=== PATIENT | female | born 1990 | race Caucasian/White ===

== ENCOUNTER 2019-12-17 01:07 | Emergency (ER) | payer OTHER ==
[2019-12-18] MEDS ORDERED: GI COCKTAIL 50ML BTL(HYOSCYAMINE/MAALOX/LIDOCAINE VISCOUS)(1:3:1) As Ordered ONE (00:51)
[2019-12-18] MEDS ORDERED: GI COCKTAIL 50ML BTL(HYOSCYAMINE/MAALOX/LIDOCAINE VISCOUS)(1:3:1) ONE (00:51)
[2020-01-16] MEDS ORDERED: PANT40TA29 (11:30)
--- NOTE | 2020-01-25 08:54 | ECGEPIP ---
SINUS RHYTHM NORMAL ECG SEE SCANNED DOWNTIME REPORT MTDD
[2020-03-02 21:33] LABS: ALBUMIN 3.8 GM/DL (3.2-5.2); ALT/SGPT 42 U/L (12-78); BILIRUBIN,DIRECT 0.2 MG/DL (0.0-0.2); BILIRUBIN,TOTAL 0.4 MG/DL (0.2-1.0); BLOOD UREA NITROGEN 9 MG/DL (7-18); CALCIUM LEVEL 9.2 MG/DL (8.5-10.1); CARBON DIOXIDE LEVEL 29 MEQ/L (21-32); CHLORIDE LEVEL 107 MEQ/L (98-107); CREATININE FOR GFR 0.77 MG/DL (0.55-1.30); GLOMERULAR FILTRATION RATE > 60.0 (>60); GLUCOSE, FASTING 116 MG/DL (70-100); LIPASE 65 U/L (73-393); SODIUM LEVEL 141 MEQ/L (136-145); TOTAL PROTEIN 7.1 GM/DL (6.4-8.2)
[2020-03-02 21:34] LABS: HCG, SERUM QUALITATIVE NEGATIVE (NEGATIVE)
== END 2019-12-18 02:15 | disposition left against medical advice (07) ==
LOC: M ED 01:07
DX: R10.13 Epigastric pain (principal); K21.9 Gastro-esophageal reflux disease without esophagitis

== ENCOUNTER 2019-12-21 17:05 | Emergency (ER) | payer OTHER ==
[2020-01-16] MEDS ORDERED: PANT40TA29 (11:30)
[2020-02-05 01:02] LABS: BASO % 0.3 % (0.0-1.0); EOS # 0.1 10^3/uL (0.0-0.5); EOS % 1.1 % (0.0-3.0); HEMATOCRIT 37.4 % (36.0-47.0); HEMOGLOBIN 12.1 g/dl (12.0-15.5); LYMPH # 3.7 10^3/uL (1.5-5.0); LYMPH % 28.8 % (24.0-44.0); MEAN CORPUSCULAR HEMOGLOBIN 27.4 pg (27.0-33.0); MEAN CORPUSCULAR HGB CONC 32.4 g/dl (32.0-36.5); MEAN CORPUSCULAR VOLUME 84.6 fl (80.0-96.0); MONO # 0.7 10^3/uL (0.0-0.8); MONO % 5.2 % (0.0-5.0); NEUTROPHILS # 8.2 10^3/uL (1.5-8.5); NEUTROPHILS % 64.1 % (36.0-66.0); PLATELET COUNT, AUTOMATED 331 10^3/uL (150-450); RED BLOOD COUNT 4.42 10^6/uL (4.00-5.40); WHITE BLOOD COUNT 12.8 10^3/uL (4.0-10.0)
[2020-03-15 11:27] LABS: HCG, SERUM QUALITATIVE NEGATIVE (NEGATIVE)
[2020-03-15 11:28] LABS: ALBUMIN 3.5 GM/DL (3.2-5.2); ALT/SGPT 30 U/L (12-78); BILIRUBIN,TOTAL 0.3 MG/DL (0.2-1.0); BLOOD UREA NITROGEN 5 MG/DL (7-18); CALCIUM LEVEL 8.9 MG/DL (8.5-10.1); CARBON DIOXIDE LEVEL 27 MEQ/L (21-32); CHLORIDE LEVEL 109 MEQ/L (98-107); CREATININE FOR GFR 0.66 MG/DL (0.55-1.30); GLOMERULAR FILTRATION RATE > 60.0 (>60); GLUCOSE, FASTING 97 MG/DL (70-100); LIPASE 75 U/L (73-393); POTASSIUM SERUM 3.9 MEQ/L (3.5-5.1); SODIUM LEVEL 140 MEQ/L (136-145); TOTAL PROTEIN 6.8 GM/DL (6.4-8.2)
== END 2019-12-21 19:28 | disposition home or self-care (01) ==
LOC: M ED 17:05
DX: K80.20 Calculus of gallbladder without cholecystitis without obstruction (principal); F17.200 Nicotine dependence, unspecified, uncomplicated; Z79.52 Long term (current) use of systemic steroids

== ENCOUNTER → 2020-01-20 | Outpatient (CLI) | payer OTHER ==
[~2020-01-20] MED LIST: PANT40TA29
== END ==
LOC: M LABSMTC 09:25
PROVIDERS: ATTEND Anesthesiology
DX: Z01.812 Encounter for preprocedural laboratory examination (principal); Z20.828 Contact with and (suspected) exposure to other viral communicable diseases
CPT/HCPCS: C9803; U0003

== ENCOUNTER 2020-01-25 08:06 | Day surgery (SDC) | payer OTHER ==
[~2020-01-25] VITALS: Ht 157.5 cm; Wt 88.9 kg
[~2020-01-25 08:06] MED LIST changes: +AMPICILLIN SOD/SULBACTAM SOD 3 GM in D5W MINI-BAG PLUS 100 ML IV ONE; +BUPIVACAINE HCL 0.25% 30ML VIAL As Ordered ONE; +LIDOCAINE 1% MDV 20ML VIAL SQ PRN; +LIDOCAINE 1% SDV 30ML VIAL As Ordered ONE; +LR 1,000 ML IV ONE
[2020-01-25] MEDS ORDERED: ONDANSETRON 4MG/2ML VIAL As Ordered ONE (08:23)
[2020-01-25] MEDS ORDERED: LIDOCAINE 2% 100MG/5ML SDV (FOR ANES.) As Ordered ONE (08:23)
[2020-01-25] MEDS ORDERED: ACETAMINOPHEN 1000MG 100ML IV BTL (OFIRMEV) (J0131 PER 10MG) As Ordered ONE (08:23)
[2020-01-25] MEDS ORDERED: dexameTHASONE 4 MG/ML 1ML VIAL (J1100 PER 1MG) As Ordered ONE (08:23)
[2020-01-25] MEDS ORDERED: KETOROLAC 60MG 2ML VIAL As Ordered ONE (08:23)
[2020-01-25] MEDS ORDERED: propofoL 200 MG/20 ML VIAL As Ordered ONE (08:23)
[2020-01-25] MEDS ORDERED: ROCURONIUM BROMIDE 50 MG/5 ML VIAL As Ordered ONE (08:23)
[2020-01-25] MEDS ORDERED: SUGAMMADEX SODIUM 500 MG/5 ML VIAL (BRIDION) As Ordered ONE (08:23)
[2020-01-25] MEDS ORDERED: MIDAZOLAM INJ 2MG/2ML VIAL (J2250 PER 1MG) As Ordered ONE (08:24)
[2020-01-25] MEDS ORDERED: fentaNYL 100 MCG/2 ML INJECTION (J3010) As Ordered ONE ×2 (08:24→10:43)
[2020-01-25] MEDS ORDERED: UNASYN 3 GM VIAL As Ordered ONE (09:12)
--- NOTE | 2020-01-25 11:20 | ROOPDOC ---
[facility] Report Of Operation Report of Operation DATE OF PROCEDURE: 01/25/20 PREPROCEDURE DIAGNOSES: Cholelithiasis, prior cholecystitis, biliary colic. POSTPROCEDURE DIAGNOSES: same. PROCEDURE: Robotic Assisted laparoscopic cholecystectomy with ICG use for biliary tract identificatiion. SURGEON: Al Sanches MD SCOOTER MECHANIC: ARLEEN Andrea Ms assisted me with placement of ports, management of robotic instruments, arms in the field while I was at the Surgeon's console, extraction of the gallbladder and closure of port sites ANESTHESIA: General Anesthesia. ESTIMATED BLOOD LOSS: Approximately 10 mL. COMPLICATIONS: none. REMARKS: Patient is a 29 F who has been having intermittent epigastric and RUQ pain following food intake and found to have stones in her gb with associated inflammation consistent with cholecystitis. PROCEDURE NOTE: distended but thin walled gb, multiple large stones in the gb, one at the gb neck. DESCRIPTION OF PROCEDURE: . Patient was given a dose Unasyn 3 g IV preoperatively for prophylaxis, 2.5 mg of ICG was given in the preoperative area. She was brought to the operating room, laid supine on the table, compression boots placed for DVT prophylaxis. General endotracheal anesthesia started. His abdomen then prepped and draped in usual sterile fashion. Surgical timeout was performed prior to confirm right procedure, right patient identification and other necessary information prior to starting surgery. Entry into the abdomen done through an incision aslightly to the left of the umbilical cleft. A Veress needle was inserted with a controlled fashion. CO2 insufflation started to pressure 15 mmHg. Using the same incision an 8 mm robotic trochar was placed under direct vision laparoscope. The area underneath the insertion site was inspected and no injury found. She was then placed in reverse Trendelenburg. Her right side was tilted up to further expose the gallbladder. Under direct vision 3 more 8 mm trochars were placed along a row at level to the camera port site at the anterior axillary line, right midclavicular line and left mid clavicular line. A transversus abdominis plane block was then performed bilaterally using the lidocaine/marcaine mixture under laparoscopic guidance. The da Medhat robot tower was then maneuvered in place and the trochars docked to the robot. I used a prograsp, forced bipolar, and hook cautery for the procedure with a 30 robotic camera. I unscrubbed and assumed control of the camera and instruments at the surgeon's console. My assistant director of financial aid remained on the field to manage instrument exchange and extraction of the gb. Operative findings: Her liver is noted to be smooth in contour. The size of the liver is midly enlarged. Her gallbladder is moderately distened with large stones floating and at the neck of the gallbladder. GB is not thickened of inflamed. The fundus of the gallbladder was grasped and the gallbladder is elevated superiorly exposing the neck of the gallbladder. The peritoneum overlying the area is opened up and dissected free both anteriorly and posteriorly to help with retraction of the gallbladder. The hepatocystic triangle was approached and dissected using hook cautery and firely visualization of the cystic duct. There was good illumination of the course of the cystic duct. The cystic duct was identified coming off from the neck of the gallbladder. This was circumferentially dissected. The cystic artery was identified in its usual position medially behind a mildly enlarged lymph node of Calot. This was similarly circumferentially dissected off surrounding adipose tissue. We continued posterior dissection proximally at the neck of gallbladder to dissect the posterior wall of the gallbladder off the liver plate until a critical view of safety was achieved whereby only the previously identified duct and artery coursing through the neck the gallbladder(photodocumentation done.) At this point the the cystic artery was most accessible and this was clipped 2 times and divided in between the hemlock clips. After again checking her anatomy and verifying with firely the course of thecystic duct and common bile duct, this was also clipped and divided with 2 clips remaining at the cystic duct stump. The rest of the gallbladder was then dissected free of the gall bladder bed using Bovie cautery. The gallbladder was then placed in an Endo Catch bag and retrieved outside through the right axillary port site with partial enlargement of the port site by my assistant director of financial aid to accomodate the gallbladder. The clips and liver bed was inspected for bleeding and bile leakage and none found. I closed the extraction site with a 2-0 vloc stitch. The abdomen was deflated, The trochars undocked, the robot removed from the field. Rest of the skin incisions closed with 4-0 Monocryl in subcuticular fashion. Dermabond placed to cover the incisions.. Patient was awakened, extubated and brought to recovery room stable. AL SANCHES MD Jan 25, 2020 11:20
[2020-01-25] MEDS ORDERED: METOCLOPRAMIDE INJ 10MG/2ML VIAL (J2765 PER 1) IV PRN (11:45)
[2020-01-25] MEDS ORDERED: LR 1,000 ML IV SCH (11:45)
[2020-01-25] MEDS ORDERED: ONDANSETRON 4MG/2ML VIAL IV PRN ×2 (11:45)
[2020-01-25] MEDS ORDERED: PERCOCET 5MG/325MG TAB PO PRN (11:45)
[2020-01-25] MEDS ORDERED: HYDROMORPHONE HCL 0.5 MG/ 0.5 ML SYRINGE (J1170 PER 1) IV PRN (11:45)
[2020-01-25] MEDS ORDERED: KETOROLAC 30 MG/ML 1ML VIAL IV PRN (11:45)
[2020-01-25] MEDS: fentaNYL 100 MCG/2 ML INJECTION (J3010) IV PRN ×2 (11:53→12:19)
[2020-01-25] MEDS: oxyCODONE 5MG TAB PO PRN ×2 (12:19→13:25)
[2020-01-25] MEDS ORDERED: oxyCODONE 5MG TAB As Ordered ONE (13:23)
[2020-01-25 13:40] VITALS: BP 110/63
== END 2020-01-25 13:45 | disposition home or self-care (01) ==
LOC: M SDC 08:06
PROVIDERS: ATTEND Surgery
DX: K80.10 Calculus of gallbladder with chronic cholecystitis without obstruction (principal); F17.210 Nicotine dependence, cigarettes, uncomplicated; E66.01 Morbid (severe) obesity due to excess calories; Z68.34 Body mass index [BMI] 34.0-34.9, adult
CPT/HCPCS: 47562; 81025; 88304; J0131; J1100; J1885; J2250; J2405; J2765; J3010; S2900

== ENCOUNTER → 2020-05-01 | Outpatient (REF) | payer OTHER ==
[~2020-05-01] MED LIST changes: -AMPICILLIN SOD/SULBACTAM SOD 3 GM in D5W MINI-BAG PLUS 100 ML IV ONE; -BUPIVACAINE HCL 0.25% 30ML VIAL As Ordered ONE; -LIDOCAINE 1% MDV 20ML VIAL SQ PRN; -LIDOCAINE 1% SDV 30ML VIAL As Ordered ONE; -LR 1,000 ML IV ONE
[2020-05-01 12:51] LABS: HEMATOCRIT 41.7 % (36.0-47.0); HEMOGLOBIN 13.2 g/dl (12.0-15.5); MEAN CORPUSCULAR HEMOGLOBIN 27.2 pg (27.0-33.0); MEAN CORPUSCULAR HGB CONC 31.7 g/dl (32.0-36.5); MEAN CORPUSCULAR VOLUME 85.8 fl (80.0-96.0); PLATELET COUNT, AUTOMATED 336 10^3/uL (150-450); RED BLOOD COUNT 4.86 10^6/uL (4.00-5.40)
[2020-05-01 14:39] LABS: HCG, SERUM QUANTITATIVE 3388 MIU/ML
[2020-05-02 09:36] LABS: HEPATITIS B SURFACE ANTIGEN NEGATIVE (NEGATIVE)
[2020-05-02 10:03] LABS: HEPATITIS C VIRUS ABY INDEX 0.1 INDEX (<0.8)
[2020-05-02 10:04] LABS: HIV 1&2 SCREEN CENTAUR NEGATIVE (NEGATIVE)
== END ==
LOC: M LAB REF 12:20
PROVIDERS: ATTEND Advanced Practice Midwife
DX: O36.80X0 Pregnancy with inconclusive fetal viability, not applicable or unspecified (principal)

== ENCOUNTER → 2020-05-08 | Outpatient (CLI) | payer OTHER ==
--- NOTE | 2020-05-08 20:33 | REP ---
INDICATION: DATING/VIABILITY COMPARISON: None. TECHNIQUE: Transabdominal and transvaginal 1st trimester obstetrical ultrasound with color Doppler evaluation. FINDINGS: Single live early intrauterine is appreciated. Gestational sac with yolk sac and pole identified. [place]-rump length of 3 mm corresponds to 6 weeks 0 days gestational age with estimated date of delivery 01/01/2021. heart rate equals 110 beats per minute. No gross abnormalities are identified. IMPRESSION: Single live early intrauterine at 6 weeks 0 days gestational age. Complete anatomical assessment should be performed and 19-20 weeks. <Electronically signed by Adrian Gaona > 05/08/20 2030
== END ==
LOC: M WHC 12:28
PROVIDERS: ATTEND Advanced Practice Midwife
DX: Z36.9 Encounter for antenatal screening, unspecified (principal); Z3A.01 Less than 8 weeks gestation of pregnancy

== ENCOUNTER → 2020-08-12 | Outpatient (CLI) | payer OTHER ==
--- NOTE | 2020-08-13 07:49 | REP ---
INDICATION: ANATOMY COMPARISON: 05/08/2020 TECHNIQUE: Transabdominal obstetrical ultrasound with color Doppler evaluation. FINDINGS: Examination demonstrates a single live intrauterine in cephalic presentation. motion is identified by technologist. Placenta is noted posterior and grade 0 without evidence for placenta previa or abruption. Amniotic fluid volume is normal. Cervix measures 3.3 cm in length and appears closed.. Gestational age by LMP and 1st U/S 19 weeks 5 days with KEMAR 01/01/2021. Gestational age by current measurements 19 weeks 5 days with KEMAR 01/01/2021. FHR equals 139 beats per minute. BPD: 4.2 cm at 18 weeks 5 days HC: 16.6 cm at 19 weeks 2 days AC: 15.1 cm at 20 weeks 2 days FL: 3.2 cm at 19 weeks 6 days HL: 3.2 cm at 20 weeks 4 days HC/AC: 1.1 Estimated weight 324 grams (65thpercentile). Anatomical assessment demonstrates normal structures including cranium, choroid plexus, cavum, cerebellum/posterior fossa, facial profile, lungs, diaphragm, stomach, cord insertion/three-vessel cord, kidneys/bladder, spine, and extremities. IMPRESSION: 1. Single live intrauterine in cephalic presentation demonstrating appropriate estimated weight and growth. 2. Limited evaluation of the nose/lips, and heart/ventricular outflow tracts. Remainder of the anatomical assessment is complete and normal. <Electronically signed by Adrian Gaona > 08/13/20 0722
== END ==
LOC: M WHC 09:58
PROVIDERS: ATTEND Advanced Practice Midwife
DX: Z34.82 Encounter for supervision of other normal pregnancy, second trimester (principal); Z3A.19 19 weeks gestation of pregnancy

== ENCOUNTER → 2020-11-07 | Outpatient (CLI) | payer OTHER ==
[2020-11-07 17:23] LABS: HEMATOCRIT 33.8 % (36.0-47.0); HEMOGLOBIN 11.3 g/dl (12.0-15.5); MEAN CORPUSCULAR HEMOGLOBIN 29.8 pg (27.0-33.0); MEAN CORPUSCULAR HGB CONC 33.4 g/dl (32.0-36.5); MEAN CORPUSCULAR VOLUME 89.2 fl (80.0-96.0); PLATELET COUNT, AUTOMATED 290 10^3/uL (150-450); RED BLOOD COUNT 3.79 10^6/uL (4.00-5.40); WHITE BLOOD COUNT 14.8 10^3/uL (4.0-10.0)
== END ==
LOC: M PLALAB 13:21
PROVIDERS: ATTEND Advanced Practice Midwife
DX: Z34.82 Encounter for supervision of other normal pregnancy, second trimester (principal)

== ENCOUNTER → 2020-11-07 | Outpatient (CLI) | payer OTHER ==
--- NOTE | 2020-11-07 09:43 | REP ---
INDICATION: F/U ANATOMY COMPARISON: 08/12/2020 TECHNIQUE: Transabdominal obstetrical ultrasound with color Doppler evaluation. FINDINGS: Examination demonstrates a single live intrauterine in breech presentation. motion is identified by technologist. Placenta is noted posterior and grade 1 without evidence for placenta previa or abruption. Amniotic fluid volume is normal. Cervix measures 4.3 cm in length and appears closed.. Selected gestational age: 32 weeks 1 day with KEMAR 01/01/2021. Gestational age by current measurements 32 weeks 2 days with KEMAR 12/31/2020. FHR equals 153 beats per minute. Estimated weight 1975 grams (51stpercentile). ANEUDY: 19.4 cm (8.6-24.2) Anatomical assessment demonstrates normal left ventricular outflow tract, and nose/lips. IMPRESSION: Single live advanced gestation in breech presentation demonstrating appropriate estimated weight and growth. In conjunction with prior examination anatomical assessment is essentially complete and normal. However, limited evaluation of the right cardiac ventricular outflow tract is again noted. <Electronically signed by Adrian Gaona > 11/07/20 0952
== END ==
LOC: M WHC 08:26
PROVIDERS: ATTEND Advanced Practice Midwife
DX: Z34.82 Encounter for supervision of other normal pregnancy, second trimester (principal)

== ENCOUNTER → 2020-12-10 | Outpatient (REF) | payer OTHER ==
[~2020-12-10] MED LIST changes: +ACET325C5 PO; +COLA100C5 PO; +IBUP80TA PO; +PERCOCET PO; +PRENTAB9 PO; +TUMS500C PO
== END ==
LOC: M LAB REF 17:28
PROVIDERS: ATTEND Obstetrics & Gynecology
DX: Z34.83 Encounter for supervision of other normal pregnancy, third trimester (principal); Z3A.00 Weeks of gestation of pregnancy not specified

== ENCOUNTER 2021-01-07 17:07 | Inpatient (IN) | payer OTHER ==
[~2021-01-07] VITALS: Ht 160 cm; Wt 96.8 kg
[~2021-01-07 17:07] MED LIST changes: -ACET325C5 PO; -COLA100C5 PO; -IBUP80TA PO; -PERCOCET PO; -PRENTAB9 PO; -TUMS500C PO
[2021-01-07 17:27] VITALS: BP 117/69
[2021-01-07] MEDS ORDERED: ACET325C5 PO (17:33)
[2021-01-07] MEDS ORDERED: PRENTAB9 PO (17:33)
[2021-01-07] MEDS ORDERED: TUMS500C PO (17:33)
[2021-01-07] MEDS ORDERED: HOME MED LIST COMPLETE! XX SCH (17:35)
[2021-01-07] MEDS ORDERED: LR 1,000 ML IV ONE ×2 (18:30→19:15)
[2021-01-07] MEDS ORDERED: LACTATED RINGER'S 1000 ML IV STA (18:41)
[2021-01-07] MEDS ORDERED: PENICILLIN G POTASSIUM IV 5 MU in D5W MINI-BAG PLUS 100 ML IV STA (18:41)
[2021-01-07] MEDS ORDERED: CARBOPROST TROMETHAMINE 250 MCG/ML AMP IM PRN (18:45)
[2021-01-07] MEDS ORDERED: TRANEXAMIC ACID INJection 1,000 MG in NS 100 ML IV PRN (18:45)
[2021-01-07] MEDS ORDERED: LR 1,000 ML IV SCH ×2 (18:45→22:45)
[2021-01-07] MEDS ORDERED: OXYTOCIN DRIP 30 UNITS in IV 1 EA IV SCH ×2 (18:45→22:45)
[2021-01-07] MEDS ORDERED: METHYLERGONOVINE MALEATE 0.2 MG/ML VIAL (J2210) IM PRN (18:45)
[2021-01-07 19:07] LABS: HEMOGLOBIN 12.3 g/dl (12.0-15.5); MEAN CORPUSCULAR HGB CONC 34.2 g/dl (32.0-36.5); MEAN CORPUSCULAR VOLUME 87.8 fl (80.0-96.0); PLATELET COUNT, AUTOMATED 280 10^3/uL (150-450); WHITE BLOOD COUNT 14.5 10^3/uL (4.0-10.0)
[2021-01-07 19:18] VITALS: BP 108/62
--- NOTE | 2021-01-07 19:36 | HPEPDOC ---
Obstetrical History & Physical General Date of Admission Jan 07, 2021 at 17:07 History of Present Illness 30-year-old at 41+1 weeks gestation. Presents for an induction of labor. Indication for induction: Late term gestation She denies vaginal bleeding, loss of fluid or painful, frequent uterine contractions. She reports regular movement. She denies headache, visual changes, right upper quadrant pain, shortness of breath or chest pain. 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 STI or dysplasia OB: G1, 2012, , 7 pounds 11 ounces, uncomplicated Sochx: No tobacco, alcohol or drug use FamHx: Father, colitis labs: Blood type a positive, antibody screen negative, HepBsAg neg, HIV neg, rubella immune, Hep C antibody negative, RPR nonreactive, CT/GC neg, urine culture negative, 1 hour glucose challenge test 88, GBS positive Imaging: anatomical assessment complete and normal, no placental abnormality Past Medical History Allergies Coded Allergies: No Known Allergies (Unverified , 01/22/20) Medications Scheduled No.137/Iron/Folic Acd ( Vitamin Tablet) 1 Each Tablet, 1 TAB PO DAILY Scheduled PRN Acetaminophen (Tylenol) 325 Mg Capsule, 2 TABS PO Q4HP PRN for MILD DISCOMFORT Calcium Carbonate (Tums) 200 Mg Tab.chew, 1 TAB PO Q6HP PRN for INDIGESTION Physical Examination Physical Examination GENERAL: Alert and oriented times three. ABDOMEN: Gravid and non-tender to touch. FETUS: Is vertex (VTX) by sterile vaginal examination (SVE), fetus is vertex (VTX) by [place]. HEART RATE: Regular rate and rhythm. LUNGS: Clear to auscultation (CTA). EXTREMITIES: No edema. No clonus. SVE: 1 to 2 cm, 75% effacement, -3 station, cephalic, intact, no bloody show EFM: Category 1 [place]: Irregular rare contractions Vital Signs/I&O Vital Signs Date Time Temp Pulse Resp B/P (MAP) Pulse Ox O2 Delivery O2 Flow Rate FiO2 01/07/21 18:01 98 Room Air 01/07/21 17:27 97.0 96 20 117/69 (85) Laboratory Data 24H LABS Laboratory Tests 2 01/07/21 17:21: Serology Scanned Report Hepatitis B Testing 01/07/21 18:26: Nucleated Red Blood Cells % (auto) 0.0, Syphilis Serology NONREACTIVE CBC/BMP Laboratory Tests 01/07/21 18:26 Assessment/Plan Assessment 30-year-old -0-0-1 at 41 weeks and 1 day gestation. Reassuring maternal status. Patient aware of the rationale for induction of labor for late term gestation. Plan Admit and orient. Manager Field Sales and consent. Group B Streptococcus (GBS) positive, treat with penicillin during labor. Labs and intravenous (IV) per unit protocol. Counseled on Pitocin and induction of labor (IOL). Anticipate normal spontaneous delivery (). C-S as appropriate. DARRON ROMANO DO Jan 07, 2021 19:36
[2021-01-07 20:57] VITALS: BP 102/55
[2021-01-07] MEDS ORDERED: AZITHROMYCIN INJ 500 MG, VIAL MATE ADAPTER 1 EACH in NS 250 ML IV ONE (21:20)
[2021-01-07] MEDS ORDERED: ceFAZolin SOD 2 GM in IV 1 EA IV ONE (21:20)
[2021-01-07] MEDS ORDERED: BICITRA 30ML SOLN UDC PO ONE (21:20)
[2021-01-07] MEDS ORDERED: ceFAZolin 2 GM/D5W 50 ML IV BAG (J0690 PER 500MG) As Ordered ONE (21:20)
[2021-01-07] MEDS ORDERED: MORPHINE PRES-FREE INJ 10 MG/10 ML VIAL (J2274) As Ordered ONE (21:37)
[2021-01-07] MEDS ORDERED: diphenhydrAMINE 50MG/ML VIAL (J1200) IV PRN (21:41)
[2021-01-07] MEDS ORDERED: ONDANSETRON 4MG/2ML VIAL IV PRN ×3 (21:41→22:45)
[2021-01-07] MEDS ORDERED: METOCLOPRAMIDE INJ 10MG/2ML VIAL (J2765 PER 1) IV PRN ×2 (21:41→22:45)
[2021-01-07] MEDS ORDERED: NALBUPHINE HCL 10 MG/ML AMP (J2300) IV PRN (21:41)
[2021-01-07] MEDS ORDERED: NALOXONE INJ 0.4MG/1ML VIAL (J2310 PER 1MG) IV PRN ×2 (21:41)
--- NOTE | 2021-01-07 21:41 | IPNPDOC ---
Obstetrical Progress Note Date of Service Jan 07, 2021 Subjective Pt noted to have multiple prolonged FHR decelerations during this admission. One prolonged deceleration occurred shortly after starting Pitocin; essentially had a +DEAN OF BOYS. Pitocin was immediately shut off. Maternal uterine resuscitative efforts were performed. Another prolonged deceleration occurred with the Pitocin off. Risks of proceeding with IOL efforts vs PLTCS were reviewed, and patient has elected to proceed with PLTCS. Indication: abnormal FHR/NR DEAN OF BOYS. SVE: unchanged since admission. No LOF/VB. Pt counseled and consented for PLTCS, informed consent signed, and preparations for the OR being made. Objective Vital Signs Date Time Temp Pulse Resp B/P (MAP) Pulse Ox O2 Delivery O2 Flow Rate FiO2 01/07/21 20:57 18 102/55 (71) Room Air 01/07/21 19:18 97.8 82 01/07/21 18:01 98 DARRON ROMANO DO Jan 07, 2021 21:41
[2021-01-07] MEDS ORDERED: KETOROLAC 60MG 2ML VIAL As Ordered ONE (22:00)
[2021-01-07] MEDS ORDERED: ONDANSETRON 4MG/2ML VIAL As Ordered ONE (22:00)
[2021-01-07] MEDS ORDERED: OXYTOCIN 30 UNITS IN 0.9% NaCl 500ML IV BAG (J2590) As Ordered ONE ×2 (22:00→22:38)
[2021-01-07] MEDS ORDERED: fentaNYL 100 MCG/2 ML INJECTION (J3010) As Ordered ONE (22:08)
[2021-01-07 22:13] LABS: CORD GAS ABE A -5.5; CORD GAS HCO3 A 20.1 MEQ/L; CORD GAS O2 SAT A 63.9 %; CORD GAS PCO2 A 39.8 mmHg; CORD GAS PH A 7.322 UNITS; CORD GAS PO2 A 26.1 mmHg; CORD GAS SBC A 19.2 MEQ/L; CORD GAS TCO2 A 21.4 MEQ/L
[2021-01-07 22:16] LABS: CORD GAS ABE V -5.2; CORD GAS HCO3 V 20.1 MEQ/L; CORD GAS O2 SAT V 73.2 %; CORD GAS PCO2 V 38.8 mmHg; CORD GAS PH V 7.333 UNITS; CORD GAS PO2 V 31.6 mmHg; CORD GAS SBC V 19.7 MEQ/L; CORD GAS TCO2 V 21.3 MEQ/L
[2021-01-07] MEDS ORDERED: SIMETHICONE 80MG CHEW TAB PO PRN (22:45)
[2021-01-07] MEDS ORDERED: KETOROLAC 30 MG/ML 1ML VIAL IV PRN (22:45)
[2021-01-07] MEDS ORDERED: RHOGAM 300 MCG (1500 IU) INJ (J2790) IM SCH (22:45)
[2021-01-07] MEDS ORDERED: PERCOCET 5MG/325MG TAB PO PRN ×3 (22:45)
[2021-01-07] MEDS ORDERED: MEASLES,MUMPS,RUBELLA VACCINE INJ (MMR-II) (90707) SC SCH (22:45)
[2021-01-07] MEDS ORDERED: ACETAMINOPHEN 500 MG TAB PO PRN (22:45)
[2021-01-07] MEDS ORDERED: fentaNYL 100 MCG/2 ML INJECTION (J3010) IV PRN (22:45)
[2021-01-07] MEDS ORDERED: ePHEDrine SULFATE 25 MG/5 ML(5MG/ML) SYRINGE As Ordered ONE (22:46)
[2021-01-07] MEDS ORDERED: ALBUTEROL SULFATE 2.5 MG/0.5 ML INH NEB SOLN INH ONE (23:00)
--- NOTE | 2021-01-07 23:04 | ROOPDOC ---
[facility] Report Of Operation Report of Operation DATE OF PROCEDURE: 01/07/2021 PREPROCEDURE DIAGNOSES: 41+1 weeks gestation, nonreassuring heart rate tracing POSTPROCEDURE DIAGNOSES: Same as above, Funich presentation noted at delivery PROCEDURE: Primary low transverse section SURGEON: Tian Beal DO FACOG EXCELSIOR MACHINE FEEDER: Zohaib Husain MD (Essential role in retraction, extraction, and closure of all tissue layers) ANESTHESIA: Spinal with Duramorph ESTIMATED BLOOD LOSS: 600 mL. IV FLUIDS: 700 mL LR URINE OUTPUT: 150 mL COMPLICATIONS: None. PREOPERATIVE ANTIBIOTICS: Ancef 2g IV x 1, Azithromycin 500mg IV. COMPLICATIONS: none DATA: Apgars 7 and 9. Birthweight 2740 g, 6 lbs 1 oz. SPECIMENS: none PRIMARY INDICATION FOR : Non-reassuring heart rate tracing. DESCRIPTION OF PROCEDURE: The patient was counseled on the risks, benefits, indications and alternatives of the procedure. Informed consent was obtained. She was taken to the operating room with IV running and placed on the operating table in the dorsal supine position with a leftward tilt. Regional anesthesia was found to be adequate. Sequential compression devices were placed on the lower extremities. A Roche catheter was placed under sterile conditions. She was prepared and draped in normal sterile fashion. A time out was performed per protocol. Regional anesthesia was again found to be adequate. A Pfannenstiel skin incision was made with the 10 blade. The 10 blade was used to dissect down to the level of the rectus sheath fascia. The rectus sheath pressure was incised midline and this was extended bilaterally with Valle scissors , and manual stretch. The rectus muscle bellies were dissected off the rectus sheath fascia superiorly and inferiorly using both sharp and blunt dissection. The midline was identified. The peritoneum was identified and enter ed digitally. The peritoneal opening was extended with manual stretch. The Mobius retractor was placed. The vesicouterine peritoneum was dissected with Metzenbaum scissors to create the bladder flap. A low transverse uterine incision was made with the 10 blade. This was extended with manual stretch. The amniotic sac was punctured, and thick meconium stained fluid was noted. Of note, a significant segment of the umbilical cord was noted to be presenting below the head (funich presentation), which may have contributed to the nonreassuring heart rate tracing. The baby delivered through the hysterotomy without difficulty. The cord was doubly clamped and cut, and the baby was handed off to awaiting care. data shown above. Cord blood obtained. Cord gases were obtained. The placenta was removed manually. The intrauterine cavity was cleared of all clot and debris. The hysterotomy was closed with 0 Vicryl in running locked fashion. This was reinforced with a second imbricating layer using 0 Monocryl in running fashion. Excellent hemostasis of the hysterotomy was noted. The pelvis was irrigated and the fluid suctioned. The Mobius retractor was removed. The peritoneum was closed with 3-0 Vicryl running fashion. The rectus muscle bellies were reapproximated with interrupted stitches using 3-0 Vicryl. The rectus muscles bellies were hemostatic. The rectus sheath fascia was closed with 0 Vicryl running fashion. The subcutaneous layer was irrigated and the fluid suctioned. Small bleeding vessels were cauterized with Bovie. Excellent hemostasis was noted. The subcutaneous layer was reapproximated with 3-0 Vicryl running fashion. Skin was closed with 3-0 Monocryl in subcuticular fashion. An Optifoam bandage was placed over the closed incision. Sponge, needle and instrument counts were correct per protocol throughout the procedure. The patient tolerated the entire procedure very well. She was transferred to the PACU in stable condition. DO ASHLYN Green JONATHAN R. DO Jan 07, 2021 23:04
[2021-01-07] MEDS ORDERED: PENICILLIN G POTASSIUM IV 2.5 MU in IV 1 EA IV SCH (23:09)
[2021-01-07] MEDS ORDERED: COLA100C5 PO (23:18)
[2021-01-07] MEDS ORDERED: IBUP80TA PO (23:18)
[2021-01-07] MEDS ORDERED: PERCOCET PO (23:18)
[2021-01-08] MEDS ORDERED: ONDANSETRON 4MG/2ML VIAL As Ordered ONE (00:11)
[2021-01-08 02:00] VITALS: BP 107/68
[2021-01-08] MEDS: KETOROLAC 30 MG/ML 1ML VIAL IV SCH ×3 (04:19→16:28)
[2021-01-08 06:00] VITALS: BP 109/61
[2021-01-08] MEDS: LR 1,000 ML IV SCH ×3 (06:08→16:44)
--- NOTE | 2021-01-08 06:17 | IPNPDOC ---
Progress Note Date of Service: Jan 08, 2021 Progress Note SUBJECT: Status post PLTCS for non-reassuring FHR> She has been ambulating, Roche has been in place, and tolerating regular diet. Lochia decreasing/minimal. Pain is well-controlled. Incision bandage is clean/unsaturated. Denies headache, visual changes, right upper quadrant pain, shortness of breath or chest pain. OBJECTIVE: VITAL SIGNS: Within normal limits, afebrile. Alert and oriented times three. Abdomen: Fundus firm at U-2. Soft, NTTP. Incision bandage not soaked through ASSESSMENT: Status post uncomplicated PLTCS. Vitals within normal limits, a febrile, hemodynamically stable with no evidence of infection. PLAN: Discharge to home tomorrow Routine /postoperative advancement Postoperative instructions/precautions reviewed. Routine PP visit at 2 and 6 weeks in clinic. VS, I&O, 24H, Fishbone Vital Signs/I&O Vital Signs Date Time Temp Pulse Resp B/P (MAP) Pulse Ox O2 Delivery O2 Flow Rate FiO2 01/08/21 02:00 96.7 75 16 107/68 (81) 99 Room Air I&O- Last 24 Hours up to 6 AM 01/08/21 06:00 Intake Total 2595 ml Output Total 1350 ml Balance 1245 ml Laboratory Data 24H LABS Laboratory Tests 2 01/07/21 17:21: Serology Scanned Report Hepatitis B Testing 01/07/21 18:26: Nucleated Red Blood Cells % (auto) 0.0, Syphilis Serology NONREACTIVE 01/07/21 22:00: Cord Arterial Blood pH 7.322, Cord Arterial Blood PCO2 39.8, Cord Arterial Blood PO2 26.1, Cord Arterial Blood HCO3 20.1, Cord Arterial Blood Total CO2 21.4, Cord Arterial Blood Base Excess -5.5, Cord Arterial Base Excess (Standard 19.2, Cord Arterial Bld Oxygen Saturation 63.9 01/07/21 22:02: Cord Venous Blood pH 7.333, Cord Venous Blood PCO2 38.8, Cord Venous Blood PO2 31.6, Cord Venous Blood HCO3 20.1, Cord Venous Blood Total CO2 21.3, Cord Venous Base Excess (Actual) -5.2, Cord Venous Base Excess (Standard) 19.7, Cord Venous Blood Oxygen Saturation 73.2 CBC/BMP Laboratory Tests 01/07/21 18:26 DARRON ROMANO DO Jan 08, 2021 06:17
[2021-01-08 07:18] LABS: HEMATOCRIT 33.6 % (36.0-47.0); HEMOGLOBIN 11.3 g/dl (12.0-15.5); MEAN CORPUSCULAR HEMOGLOBIN 29.5 pg (27.0-33.0); MEAN CORPUSCULAR HGB CONC 33.6 g/dl (32.0-36.5); MEAN CORPUSCULAR VOLUME 87.7 fl (80.0-96.0); PLATELET COUNT, AUTOMATED 245 10^3/uL (150-450); RED BLOOD COUNT 3.83 10^6/uL (4.00-5.40)
[2021-01-08] MEDS: PRENATAL VITAMINS CHEWABLE TABLET PO SCH (07:48)
[2021-01-08] MEDS: DOCUSATE SODIUM 100MG CAPSULE PO SCH ×2 (07:48→20:37)
[2021-01-08 18:00] VITALS: BP 108/67
[2021-01-08] MEDS: IBUPROFEN 800 MG TAB PO SCH (23:20)
[2021-01-09 06:00] VITALS: BP 104/50
[2021-01-09] MEDS: IBUPROFEN 800 MG TAB PO SCH (07:42)
[2021-01-09] MEDS: PRENATAL VITAMINS CHEWABLE TABLET PO SCH (07:42)
[2021-01-09] MEDS: DOCUSATE SODIUM 100MG CAPSULE PO SCH (07:42)
--- NOTE | 2021-01-09 11:19 | DS.PDOC ---
Discharge Summary General Date of Admission Jan 07, 2021 at 17:07 Date of Discharge 2020 Discharge Summary PROCEDURES PERFORMED DURING STAY: section. ADMITTING DIAGNOSES: 1. 41 weeks gestation, labor induction. DISCHARGE DIAGNOSES: 1. Delivered. COMPLICATIONS/CHIEF COMPLAINT: Induction. HISTORY OF PRESENT ILLNESS: 30-year-old -0-0-1 female at 41-1/7 weeks gestation presents for labor induction. She had no complications.. HOSPITAL COURSE: 30-year-old -0-0-1 female at 41-1/7 weeks gestation prese nts for labor induction. She had no complications. She was admitted on January 07, 2021. She had Pitocin started for labor induction. Fairly she went into the labor she was noted to have recurrent episodes of bradycardia. All possible maneuvers were tried the decision was made ultimately to perform a . On 01/07/2021 she underwent a primary without complication. A funic presentation was noted at the time of section. Her postoperative course was unremarkable. She had adequate return of bladder bowel function. She was deemed stable for discharge on postop day #2. DISCHARGE MEDICATIONS: Please see below. ALLERGIES: Please see below. PHYSICAL EXAMINATION ON DISCHARGE: VITAL SIGNS: Please see below. GENERAL: Within normal limits HEENT: NCAT CARDIOVASCULAR EXAMINATION: RRR RESPIRATORY EXAMINATION: CTA ABDOMINAL EXAMINATION: Nontender, fundus firm EXTREMITIES: Nontender LABORATORY DATA: Please see below. PROGNOSIS: Good ACTIVITY: As tolerated. DIET: Regular DISCHARGE PLAN: Home DISCHARGE INSTRUCTIONS: 1. . ITEMS TO FOLLOWUP ON ON OUTPATIENT: 1. Instructions reviewed 2. Pain medication sent in. 3. Follow-up in the office in 2 weeks DISCHARGE CONDITION: Stable. TIME SPENT ON DISCHARGE: 10 minutes. Vital Signs/I&Os Vital Signs Date Time Temp Pulse Resp B/P (MAP) Pulse Ox O2 Delivery O2 Flow Rate FiO2 01/09/21 06:00 97.7 84 18 104/50 (68) 96 Room Air I&O- Last 24 Hours up to 6 AM 01/09/21 05:59 Intake Total 1110 ml Output Total 875 ml Balance 235 ml Discharge Medications Scheduled Docusate Sodium (Colace) 100 Mg Capsule, 100 MG PO BID Ibuprofen (Ibuprofen) 800 Mg Tablet, 800 MG PO Q8H No.137/Iron/Folic Acd ( Vitamin Tablet) 1 Each Tablet, 1 TAB PO DAILY, (Reported) Scheduled PRN Acetaminophen (Tylenol) 325 Mg Capsule, 2 TABS PO Q4HP PRN for MILD DISCOMFORT, (Reported) Calcium Carbonate (Tums) 200 Mg Tab.chew, 1 TAB PO Q6HP PRN for INDIGESTION, (Reported) Oxycodone/Acetaminophen (Oxycodone-Acetaminophen 5-325) 1 Each Tablet, 1 TAB PO Q4H PRN for MODERATE PAIN (PS 5-7) Allergies Coded Allergies: No Known Allergies (Unverified , 01/22/20) MYLENE EVANS MD Jan 09, 2021 11:19
[2021-01-09 11:44] VITALS: BP 135/79
== END 2021-01-09 14:15 | disposition home or self-care (01) | DRG 540 ==
LOC: M LDI 17:07 → M OBS 01-08 06:47
PROVIDERS: ADMIT Obstetrics & Gynecology; ATTEND Obstetrics & Gynecology
PROC: 3E033VJ Introduction of Other Hormone into Peripheral Vein, Percutaneous Approach (ICD-10-PCS; 2021-01-07)
PROC: 10D00Z1 Extraction of Products of Conception, Low, Open Approach (ICD-10-PCS; principal; 2021-01-07 21:14)
DX: O48.0 Post-term pregnancy (principal); O99.824 Streptococcus B carrier state complicating childbirth; Z3A.41 41 weeks gestation of pregnancy; O76 Abnormality in fetal heart rate and rhythm complicating labor and delivery; O77.0 Labor and delivery complicated by meconium in amniotic fluid; O69.89X0 Labor and delivery complicated by other cord complications, not applicable or unspecified; Z37.0 Single live birth

== ENCOUNTER → 2022-02-01 | Outpatient (CLI) | payer OTHER ==
[~2022-02-01] MED LIST changes: +ACET325C5 PO; +COLA100C5 PO; +IBUP80TA PO; +PERCOCET PO; +PRENTAB9 PO; +TUMS500C PO
== END ==
LOC: M LABSMTC 10:04
PROVIDERS: ATTEND Anesthesiology
DX: Z01.812 Encounter for preprocedural laboratory examination (principal)